=== PATIENT | male | born 1990 | race Two or more races ===

== ENCOUNTER 2016-09-28 22:14 | Emergency (ER) | payer MEDICAID ==
[2016-09-28] MEDS ORDERED: IBUPROFEN 800 MG TABLET ONE (23:51)
== END 2016-09-29 00:23 | disposition home or self-care (01) ==
LOC: ED 22:14
DX: J02.9 Acute pharyngitis, unspecified (principal); F17.210 Nicotine dependence, cigarettes, uncomplicated
CPT/HCPCS: 87880; 99283 ×2; A9270